=== PATIENT | male | born 1985 | race African-American/Black ===

== ENCOUNTER 2019-04-22 17:00 | Emergency (ER) | payer OTHER ==
[2019-04-22 17:32] LABS: Urine Appearance Clear; Urine Bilirubin Negative (Negative); Urine Blood Negative (Negative); Urine Color Straw; Urine Glucose 3+(>=500 mg/dL) (Negative); Urine Ketones Negative (Negative); Urine Nitrite Negative (Negative); Urine Protein Negative (Negative); Urine Specific Gravity 1.023 (1.010-1.030); Urine Urobilinogen Negative (Negative)
[2019-04-22 17:36] LABS: ABS Basophils 0.1 10^3/ul (0-0.2); ABS Eosinophils 0.1 10^3/ul (0-0.6); ABS Lymphocytes 1.7 10^3/ul (1.0-4.8); ABS Monocytes 0.7 10^3/ul (0-0.8); ABS Neutrophils 6.5 10^3/ul (1.5-7.7); Eosinophil % 0.8 %; Hematocrit 46 % (42-52); Hemoglobin 15.6 g/dL (14.0-18.0); Lymphocyte % 18.5 %; Mean Corpuscular HGB Conc 34 g/dL (31-36); Mean Corpuscular Hemoglobin 27 pg (27-31); Mean Corpuscular Volume 79 fL (80-94); Mean Platelet Volume 9.9 fL (7.4-10.4); Platelet Count 171 10^3/uL (150-450); Red Cell Distribution Width 14 % (10-15)
[2019-04-22 17:59] LABS: Albumin 5.1 g/dL (3.2-5.2); Albumin/Globulin Ratio 1.6 (1-3); BUN/Creatinine Ratio 12.3 (8-20); C Reactive Protein 2.19 mg/L (<8.01); Calcium 10.3 mg/dL (8.6-10.3); EGFR African American 82.3 (>60); Globulin 3.1 g/dL (2-4); Potassium 4.2 mmol/L (3.5-5.0); Total Bilirubin 0.9 mg/dL (0.2-1.0); Total Protein 8.2 g/dL (6.4-8.9)
[2019-04-22] MEDS ORDERED: Dextrose 50% VIAL 50 ml IV PUSH PRN ×2 (19:08→19:48)
[2019-04-22] MEDS ORDERED: Insulin LISPRO* 1 UNITS UNIT SUBCUT ONE ×2 (19:08→19:48)
[2019-04-22] MEDS ORDERED: Insulin GLARGINE(*) 1 UNITS UNIT SUBCUT ONE (19:48)
--- NOTE | 2019-04-22 19:50 | ED ---
HPI Diabetic - HPI Summary HPI Summary: This pt is a 33 y/o male, with hx of insulin dependent DM, presenting to [facility] c /o not feeling well after not receiving insulin today. Pt was being transferred from [facility] to [place] today but when the bus stopped at [place] he reported to the staff not feeling well. Per triage note, his fingerstick blood glucose was greater than 600. Staff there would not medicate because he wasn't their inmate. Currently notes he feels like he is in DKA. He notes that his pump ran out in March because the company who supplied it no longer makes them. Pt has been getting injections since then. Pt states the last time he had insulin was last night around 20:00. He usually takes 30 units of lantus in the morning. - History Of Current Complaint Chief Complaint: EDDiabeticProb Time Seen by Provider: 04/22/19 19:43 Hx Obtained From: Patient Onset/Duration: Lasting Hours, Still Present Timing: Hours Severity Currently: Moderate Character: Alert Aggravating: Non-compliant Alleviating: Nothing Related History: DM I - Allergies/Home Medications Allergies/Adverse Reactions: Allergies Allergy/AdvReac Type Severity Reaction Status Date / Time insulin isophane (NPH) Allergy Unknown Verified 04/22/19 17:12 [From Humulin 70/30 U-100 Reaction Insulin] Details insulin regular Allergy Unknown Verified 04/22/19 17:12 [From Humulin 70/30 U-100 Reaction Insulin] Details PMH/Surg Hx/FS Hx/Imm Hx Endocrine/Hematology History: Reports: Hx Diabetes - Type 1 Neurological History: Denies: Hx Seizures Infectious Disease History: No Infectious Disease History: Denies: Traveled Outside the [place] in Last 30 Days - Family History Known Family History: Positive: Non-Contributory - Social History Alcohol Use: None Substance Use Type: Reports: None Smoking Status (MU): Never Smoked Tobacco Review of Systems Negative: Fever Positive: Weakness - generalized All Other Systems Reviewed And Are Negative: Yes Physical Exam - Summary Physical Exam Summary: Appearance: Well-appearing, Well-nourished, lying in bed comfortable Skin: Warm, dry, no obvious rash Eyes: sclera anicteric, no conjunctival pallor ENT: mucous membranes moist Neck: deferred Respiratory: No signs of respiratory distress Cardiovascular: Appears well perfused, pulses are nml Abdomen: deferred Musculoskeletal: Moving all 4 extremities without obvious discomfort Neurological: Awake and alert, mentation is normal, speech is fluent and appropriate Psychiatric: affect is normal, does not appear anxious or depressed Triage Information Reviewed: Yes Vital Signs On Initial Exam: Initial Vitals Temp Pulse Resp BP Pulse Ox 98.0 F 86 18 125/99 99 04/22/19 17:07 04/22/19 17:07 04/22/19 17:07 04/22/19 17:07 04/22/19 17:07 Vital Signs Reviewed: Yes Diagnostics - Vital Signs Vital Signs Temp Pulse Resp BP Pulse Ox 04/22/19 19:02 97.9 F 104 18 161/93 100 04/22/19 17:07 98.0 F 86 18 125/99 99 - Laboratory Lab Results: Lab Results 04/22/19 04/22/19 04/22/19 Range/Units 17:12 17:22 17:28 WBC 9.0 (3.5-10.8) 10^3/uL RBC 5.80 H (4.18-5.48) 10^6 /uL Hgb 15.6 (14.0-18.0) g/dL Hct 46 (42-52) % MCV 79 L (80-94) fL MCH 27 (27-31) pg MCHC 34 (31-36) g/dL RDW 14 (10-15) % Plt Count 171 (150-450) 10^3/uL MPV 9.9 (7.4-10.4) fL Neut % (Auto) 72.4 % Lymph % (Auto) 18.5 % [facility] % (Auto) 7.4 % Eos % (Auto) 0.8 % Baso % (Auto) 0.9 % Absolute Neuts (auto) 6.5 (1.5-7.7) 10^3/ul Absolute Lymphs (auto) 1.7 (1.0-4.8) 10^3/ul Absolute Monos (auto) 0.7 (0-0.8) 10^3/ul Absolute Eos (auto) 0.1 (0-0.6) 10^3/ul Absolute Basos (auto) 0.1 (0-0.2) 10^3/ul Absolute Nucleated RBC 0.0 10^3/ul Nucleated RBC % 0.0 VBG pH (7.32-7.43) VBG pCO2 (41-51) mmHg VBG pO2 (35-45) mmHg VBG HCO3 (24-28) mmol/L VBG O2 Saturation (70-80) % VBG Base Excess (0.0-4.0) mmol/L Sodium (135-145) mmol/L Potassium (3.5-5.0) mmol/L Chloride (101-111) mmol/L Carbon Dioxide (22-32) mmol/L Anion Gap (2-11) mmol/L BUN (6-24) mg/dL Creatinine (0.67-1.17) mg/dL Est GFR ( Amer) (>60) Est GFR (Non-Af Amer) (>60) BUN/Creatinine Ratio (8-20) Glucose (70-100) mg/dL POC Glucose (mg/dL) 441 H* (70-100) mg/dL Glucose Meter Confirm (70-100) mg/dL Lactic Acid (0.5-2.0) mmol/L Calcium (8.6-10.3) mg/dL Total Bilirubin (0.2-1.0) mg/dL AST (13-39) U/L ALT (7-52) U/L Alkaline Phosphatase (34-104) U/L C-Reactive Protein (<8.01) mg/L Total Protein (6.4-8.9) g/dL Albumin (3.2-5.2) g/dL Globulin (2-4) g/dL Albumin/Globulin Ratio (1-3) Urine Color Straw Urine Appearance Clear Urine pH 7.0 (5-9) Ur Specific [place] 1.023 (1.010-1.030) Urine Protein Negative (Negative) Urine Ketones Negative (Negative) Urine Blood Negative (Negative) Urine Nitrate Negative (Negative) Urine Bilirubin Negative (Negative) Urine Urobilinogen Negative (Negative) Ur Leukocyte Esterase Negative (Negative) Urine Glucose 3+(>=500 mg/dl) A (Negative) 04/22/19 04/22/19 04/22/19 Range/Units 17:28 17:28 17:28 WBC (3.5-10.8) 10^3/uL RBC (4.18-5.48) 10^6 /uL Hgb (14.0-18.0) g/dL Hct (42-52) % MCV (80-94) fL MCH (27-31) pg MCHC (31-36) g/dL RDW (10-15) % Plt Count (150-450) 10^3/uL MPV (7.4-10.4) fL Neut % (Auto) % Lymph % (Auto) % [facility] % (Auto) % Eos % (Auto) % Baso % (Auto) % Absolute Neuts (auto) (1.5-7.7) 10^3/ul Absolute Lymphs (auto) (1.0-4.8) 10^3/ul Absolute Monos (auto) (0-0.8) 10^3/ul Absolute Eos (auto) (0-0.6) 10^3/ul Absolute Basos (auto) (0-0.2) 10^3/ul Absolute Nucleated RBC 10^3/ul Nucleated RBC % VBG pH 7.30 L (7.32-7.43) VBG pCO2 66 H (41-51) mmHg VBG pO2 < 38.0 (35-45) mmHg VBG HCO3 26.5 (24-28) mmol/L VBG O2 Saturation 39.5 L (70-80) % VBG Base Excess 4.0 (0.0-4.0) mmol/L Sodium 134 L (135-145) mmol/L Potassium 4.2 (3.5-5.0) mmol/L Chloride 98 L (101-111) mmol/L Carbon Dioxide 26 (22-32) mmol/L Anion Gap 10 (2-11) mmol/L BUN 15 (6-24) mg/dL Creatinine 1.22 H (0.67-1.17) mg/dL Est GFR ( Amer) 82.3 (>60) Est GFR (Non-Af Amer) 68.0 (>60) BUN/Creatinine Ratio 12.3 (8-20) Glucose 430 H (70-100) mg/dL POC Glucose (mg/dL) (70-100) mg/dL Glucose Meter Confirm (70-100) mg/dL Lactic Acid 1.9 (0.5-2.0) mmol/L Calcium 10.3 (8.6-10.3) mg/dL Total Bilirubin 0.90 (0.2-1.0) mg/dL AST 17 (13-39) U/L ALT 26 (7-52) U/L Alkaline Phosphatase 85 (34-104) U/L C-Reactive Protein 2.19 (<8.01) mg/L Total Protein 8.2 (6.4-8.9) g/dL Albumin 5.1 (3.2-5.2) g/dL Globulin 3.1 (2-4) g/dL Albumin/Globulin Ratio 1.6 (1-3) Urine Color Urine Appearance Urine pH (5-9) Ur Specific [place] (1.010-1.030) Urine Protein (Negative) Urine Ketones (Negative) Urine Blood (Negative) Urine Nitrate (Negative) Urine Bilirubin (Negative) Urine Urobilinogen (Negative) Ur Leukocyte Esterase (Negative) Urine Glucose (Negative) 04/22/19 Range/Units 17:28 WBC (3.5-10.8) 10^3/uL RBC (4.18-5.48) 10^6 /uL Hgb (14.0-18.0) g/dL Hct (42-52) % MCV (80-94) fL MCH (27-31) pg MCHC (31-36) g/dL RDW (10-15) % Plt Count (150-450) 10^3/uL MPV (7.4-10.4) fL Neut % (Auto) % Lymph % (Auto) % [facility] % (Auto) % Eos % (Auto) % Baso % (Auto) % Absolute Neuts (auto) (1.5-7.7) 10^3/ul Absolute Lymphs (auto) (1.0-4.8) 10^3/ul Absolute Monos (auto) (0-0.8) 10^3/ul Absolute Eos (auto) (0-0.6) 10^3/ul Absolute Basos (auto) (0-0.2) 10^3/ul Absolute Nucleated RBC 10^3/ul Nucleated RBC % VBG pH (7.32-7.43) VBG pCO2 (41-51) mmHg VBG pO2 (35-45) mmHg VBG HCO3 (24-28) mmol/L VBG O2 Saturation (70-80) % VBG Base Excess (0.0-4.0) mmol/L Sodium (135-145) mmol/L Potassium (3.5-5.0) mmol/L Chloride (101-111) mmol/L Carbon Dioxide (22-32) mmol/L Anion Gap (2-11) mmol/L BUN (6-24) mg/dL Creatinine (0.67-1.17) mg/dL Est GFR ( Amer) (>60) Est GFR (Non-Af Amer) (>60) BUN/Creatinine Ratio (8-20) Glucose (70-100) mg/dL POC Glucose (mg/dL) (70-100) mg/dL Glucose Meter Confirm 428 H (70-100) mg/dL Lactic Acid (0.5-2.0) mmol/L Calcium (8.6-10.3) mg/dL Total Bilirubin (0.2-1.0) mg/dL AST (13-39) U/L ALT (7-52) U/L Alkaline Phosphatase (34-104) U/L C-Reactive Protein (<8.01) mg/L Total Protein (6.4-8.9) g/dL Albumin (3.2-5.2) g/dL Globulin (2-4) g/dL Albumin/Globulin Ratio (1-3) Urine Color Urine Appearance Urine pH (5-9) Ur Specific [place] (1.010-1.030) Urine Protein (Negative) Urine Ketones (Negative) Urine Blood (Negative) Urine Nitrate (Negative) Urine Bilirubin (Negative) Urine Urobilinogen (Negative) Ur Leukocyte Esterase (Negative) Urine Glucose (Negative) Result Diagrams: 04/22/19 17:28 04/22/19 17:28 Lab Statement: Any lab studies that have been ordered have been reviewed, and results considered in the medical decision making process. Re-Evaluation - Re-Evaluation First Eval Re-Evaluation Time: 19:47 Comment: POC glucose 333 Diabetic Course/Dx - Course Assessment/Plan: Pt is a 33 y/o male, with hx of insulin dependent DM, presenting to [facility] c/o not feeling well after not receiving insulin today. Blood glucose per staff was 600. Pt he was being transferred from [facility] to [place] today but when the bus stopped at [place] he reported to the staff not feeling well. In the ED course the pt received 36 units of Lantus and 12 units of Humalog. He will be discharged home back to [place]. - Diagnoses Provider Diagnoses: Insulin dependent diabetes mellitus, Hyperglycemia Discharge - Sign-Out/Discharge Documenting (check all that apply): Patient Departure - Discharge home Patient Received Moderate/Deep Sedation with Procedure: No - Discharge Plan Condition: Good Disposition: HOME Patient Education Materials: Diabetic Hyperglycemia (ED) Referrals: Corey WERNER,Dave Griffin [Primary Care Provider] - Additional Instructions: You got 36 units of Lantus and 12 units of Humalog tonight, which should bring your blood sugar down to a reasonable level through the night. Tomorrow you should try to get back on your regular regimen. - Billing Disposition and Condition Condition: GOOD Disposition: Home - Attestation Statements Document Initiated by Reva: Yes Documenting Scribe: Carolyne Bhakta Provider For Whom Reva is Documenting (Include Credential): Riccardo Torres MD Scribe Attestation: Carolyne Dior, scribed for Riccardo Torres MD on 04/22/19 at 2013. Scribe Documentation Reviewed: Yes Provider Attestation: The documentation as recorded by the Carolyne pacheco accurately reflects the service I personally performed and the decisions made by me, Riccardo Torres MD Status of Scrdipesh Document: Viewed
[2019-04-22 21:28] VITALS: BP 140/86
== END 2019-04-22 21:30 | disposition home or self-care (01) ==
LOC: ED 17:00
DX: E10.65 Type 1 diabetes mellitus with hyperglycemia (principal); Z88.8 Allergy status to other drugs, medicaments and biological substances; Z79.4 Long term (current) use of insulin
CPT/HCPCS: 36415; 80053; 81003; 82803; 82947; 83605; 85025; 86140; 99283